=== PATIENT | female | born 1955 | race Hispanic/Latino ===

== ENCOUNTER 2023-03-05 08:45 | Outpatient (RCR) | payer MEDICARE | END 2023-03-21 | LOC: PT 08:45 | PROVIDERS: ATTEND Specialist | DX: M17.0 Bilateral primary osteoarthritis of knee (principal) ==

== ENCOUNTER 2023-04-19 09:53 | Outpatient (RCR) | payer MEDICARE | END 2023-04-20 | LOC: PT 09:53 | PROVIDERS: ATTEND Physician Assistant | DX: M17.0 Bilateral primary osteoarthritis of knee (principal) ==